=== PATIENT | female | born 1965 | race Caucasian/White ===

== ENCOUNTER 2022-06-18 13:34 | Emergency (ER) | payer SELFPAY ==
[2022-06-18] MEDS ORDERED: KETOROLAC 30 MG/ML INJ ONE (14:50)
--- NOTE | 2022-06-18 15:09 | EDPHYS ---
Physician Documentation [facility] Name: Saba Villasenor Age: 57 yrs Sex: Female : 1965 Arrival Date: 06/18/2022 Time: 13:37 Bed 9 Private MD: ED Physician Van Khoury HPI: 06/18 14:55 This 57 yrs old Female presents to ER via Ambulatory with complaints of Toothache, Jaw cp Pain, throat,cheek pain. 14:55 The patient presents with pain. The problem is located in the right lower jaw. Onset: cp The symptoms/episode began/occurred 2 month(s) ago. Duration: The symptoms are continuous, and are markedly worse than the original presentation. Associated signs and symptoms: Pertinent positives: right ear pain, right jaw pain, right facial pain, Pertinent negatives: anorexia, chills, dysphagia, fever, inability to eat. Severity of symptoms: in the emergency department the symptoms are unchanged, despite home interventions. Patient reports she is currently taking prescribed Amoxicillin for dental pain. Historical: - Allergies: 14:28 Codeine; kc6 14:28 Hydrocodone-Acetaminophen; kc6 - Home Meds: 14:28 amoxicillin Oral [Active]; kc6 - PMHx: 14:28 None; kc6 - PSHx: 14:28 Cholecystectomy; kc6 - Immunization history:: Client reports receiving the 2nd dose of the Covid vaccine, Flu vaccine is not up to date. - Social history:: Smoking status: Patient denies any tobacco usage or history of. ROS: 15:00 ENT: Positive for dental pain, ear pain, sore throat, Negative for drainage from cp ear(s), sinus congestion, difficulty swallowing, difficulty handling secretions. 15:00 Eyes: Negative for injury, pain, redness, and discharge. cp 15:00 Constitutional: Negative for body aches, chills, fever. 15:00 Respiratory: Negative for cough, shortness of breath, wheezing. 15:00 Abdomen/GI: Positive for nausea, Negative for vomiting, diarrhea, constipation. 15:00 Neuro: Negative for altered mental status, headache, weakness. Exam: 15:05 Constitutional: The patient appears in no acute distress, alert, awake, non-toxic, well cp developed, well nourished. 15:05 Head/Face: Normocephalic, atraumatic. cp 15:05 Eyes: Periorbital structures: appear normal, Conjunctiva: normal, no exudate, no injection, Sclera: no appreciated abnormality, Lids and lashes: appear normal, bilaterally. 15:05 ENT: External ear(s): are unremarkable, Ear canal(s): are normal, clear, TM's: dullness, bilaterally, Nose: is normal, Mouth: Lips: moist, Oral mucosa: pink and intact, moist, Posterior pharynx: Airway: no evidence of obstruction, patent, Tonsils: are normal in appearance, swelling, is not appreciated, erythema, is not appreciated, exudate, is not appreciated, Dental exam: abscess, is not appreciated, fractured teeth are noted, specifically the lower right second molar (#31), pain, that is moderate, specifically in the lower right second molar (#31), Voice: is normal. 15:05 Neck: ROM/movement: is normal, is supple, without pain, no range of motions limitations, Lymph nodes: no appreciated lymphadenopathy. 15:05 Chest/axilla: Inspection: normal. 15:05 Cardiovascular: Rate: normal, Rhythm: regular. cp 15:05 Respiratory: the patient does not display signs of respiratory distress, Respirations: normal, no use of accessory muscles, no retractions, labored breathing, is not present. 15:05 Skin: cellulitis, is not appreciated, no rash present. 15:05 Neuro: Orientation: to person, place \T\ time. Mentation: is normal. Vital Signs: 14:26 BP 142 / 75; Pulse 63; Resp 20 S; Temp 97.8(O); Pulse Ox 98% on R/A; Weight 86.64 kg kc6 (R); Height 5 ft. 3 in. (160.02 cm) (R); Pain 4/10; 14:26 Body Mass Index 33.83 (86.64 kg, 160.02 cm) kc6 MDM: 14:19 Patient medically screened. cp 15:05 Differential diagnosis: dental caries, dental abscess. cp 15:08 Data reviewed: vital signs, nurses notes. cp 15:08 Consideration of Admission/Observation Escalation of care including cp admission/observation considered. I considered the following discharge prescriptions or medication management in the emergency department Medications were administered in the Emergency Department. See MAR. Test considered but Not performed: Other Details CT facial bones. Counseling: I had a detailed discussion with the patient and/or guardian regarding: the historical points, exam findings, and any diagnostic results supporting the discharge/admit diagnosis, the need for outpatient follow up, for definitive care, a dentist, to return to the emergency department if symptoms worsen or persist or if there are any questions or concerns that arise at home. Response to treatment: the patient's symptoms have mildly improved after treatment, and as a result, I will discharge patient. Administered Medications: 14:51 Drug: Clindamycin 300 mg Route: PO; kc6 15:22 Follow up: Response: No adverse reaction kc6 14:52 Drug: Ketorolac 30 mg Route: IM; Site: right deltoid; kc6 15:22 Follow up: Response: No adverse reaction; Pain is decreased kc6 Disposition: 16:51 Co-signature as Attending Physician, Van Khoury MD I reviewed the patient's care rn provided by the Advanced Practice Provider and agree with the diagnosis and treatment plan. Disposition Summary: 06/18/22 15:08 Discharge Ordered Location: Home cp Problem: an ongoing problem cp Symptoms: have improved cp Condition: Stable cp Diagnosis - Disorder of teeth and supporting structures, unspecified cp Followup: cp - With: Poncho Cervantes DDS - When: 2 - 3 days - Reason: Recheck today's complaints Discharge Instructions: - Discharge Summary Sheet cp - Dental Pain cp Forms: - Medication Reconciliation Form cp - Thank You Letter cp - Antibiotic Education cp - Prescription Opioid Use cp Prescriptions: - Clindamycin HCl 300 mg Oral Capsule - take 1 capsule by ORAL route every 6 hours for 10 days; 40 capsule; Refills: 0, cp Product Selection Permitted - Zofran 4 mg Oral Tablet - take 1 tablet by ORAL route every 12 hours As needed; 20 tablet; Refills: 0, cp Product Selection Permitted - Diclofenac Sodium 75 mg Oral Tablet Sustained Release - take 1 tablet by ORAL route 2 times per day; 30 tablet; Refills: 0, Product cp Selection Permitted Signatures: Van Khoury MD MD rn Page, Corey, PA PA cp Campbell, Kaitlyn, RN RN kc6
--- NOTE | 2022-06-18 15:09 | ER ---
Nurse's Notes [facility] Name: Saba Villasenor Age: 57 yrs Sex: Female : 1965 Arrival Date: 06/18/2022 Time: 13:37 Bed 9 Private MD: Diagnosis: Disorder of teeth and supporting structures, unspecified Presentation: 06/18 14:26 Chief complaint: Patient states: right lower tooth/jaw pain that started about two kc6 months ago has progressively gotten worse. Coronavirus screen: Vaccine status: Patient reports receiving the 2nd dose of the covid vaccine. At this time, the client does not indicate any symptoms associated with coronavirus-19. Ebola Screen: No symptoms or risks identified at this time. Initial Sepsis Screen: Does the patient meet any 2 criteria? No. Patient's initial sepsis screen is negative. Does the patient have a suspected source of infection? No. Patient's initial sepsis screen is negative. Risk Assessment: Do you want to hurt yourself or someone else? Patient reports no desire to harm self or others. Onset of symptoms was March 2022. 14:26 Method Of Arrival: Ambulatory kc6 14:26 Acuity: PAULA 4 kc6 Triage Assessment: 14:28 General: Appears in no apparent distress. comfortable, Behavior is calm, cooperative, kc6 appropriate for age. Pain: Complains of pain in right lower jaw Pain currently is 4 out of 10 on a pain scale. Quality of pain is described as sharp, Pain began two months ago Is continuous, Alleviated by nothing. Aggravated by eating, drinking, Also complains of no other associated symptoms. EENT: Reports pain in right lower jaw. Neuro: Vivas Agitation-Sedation Scale (RASS): 0 - Alert and Calm Level of Consciousness is awake, alert, obeys commands, Oriented to person, place, time, situation, Appropriate for age. Cardiovascular: Capillary refill < 3 seconds. Respiratory: Airway is patent Trachea midline Respiratory effort is even, unlabored, Respiratory pattern is regular, symmetrical. GI: No signs and/or symptoms were reported involving the gastrointestinal system. : No signs and/or symptoms were reported regarding the genitourinary system. Derm: No signs and/or symptoms reported regarding the dermatologic system. Skin is intact, Skin is pink, warm \T\ dry. Musculoskeletal: No signs and/or symptoms reported regarding the musculoskeletal system. Circulation, motion, and sensation intact. Capillary refill < 3 seconds, Range of motion:. Historical: - Allergies: 14:28 Codeine; kc6 14:28 Hydrocodone-Acetaminophen; kc6 - Home Meds: 14:28 amoxicillin Oral [Active]; kc6 - PMHx: 14:28 None; kc6 - PSHx: 14:28 Cholecystectomy; kc6 - Immunization history:: Client reports receiving the 2nd dose of the Covid vaccine, Flu vaccine is not up to date. - Social history:: Smoking status: Patient denies any tobacco usage or history of. Screenin:21 [facility] ED Fall Risk Assessment (Adult) History of falling in the last 3 months, kc6 including since admission No falls in past 3 months (0 pts) Confusion or Disorientation No (0 pts) Intoxicated or Sedated No (0 pts) Impaired Gait No (0 pts) Mobility Assist Device Used No (0 pt) Altered Elimination No (0 pt) Score/Fall Risk Level 0 - 2 = Low Risk Oriented to surroundings, Maintained a safe environment, Educated pt \T\ family on fall prevention, incl call for assistance when getting out of bed, Assessed \T\ reinforced patient's understanding of fall precautions, Hourly rounding (assess needs \T\ fall precautionary measures) done. Abuse screen: Denies threats or abuse. Denies injuries from another. Nutritional screening: No deficits noted. Tuberculosis screening: No symptoms or risk factors identified. Assessment: 15:15 Reassessment: Patient appears in no apparent distress at this time. No changes from [facility] previously documented assessment. Patient and/or family updated on plan of care and expected duration. Pain level reassessed. Patient is alert, oriented x 3, equal unlabored respirations, skin warm/dry/pink. Vital Signs: 14:26 BP 142 / 75; Pulse 63; Resp 20 S; Temp 97.8(O); Pulse Ox 98% on R/A; Weight 86.64 kg kc6 (R); Height 5 ft. 3 in. (160.02 cm) (R); Pain 4/10; 14:26 Body Mass Index 33.83 (86.64 kg, 160.02 cm) [facility] ED Course: 13:37 Patient arrived in ED. am2 13:38 Ta Alvarez PA is PHCP. cp 13:39 Van Khoury MD is Attending Physician. cp 14:26 Noy Vásquez, RN is Primary Nurse. kc6 14:28 Triage completed. kc6 14:31 Arm band placed on. kc6 14:31 Patient has correct armband on for positive identification. Bed in low position. Call kc6 light in reach. Side rails up X 1. 15:07 Poncho Cervantes DDS is Referral Physician. cp 15:21 No provider procedures requiring assistance completed. Patient did not have IV access kc6 during this emergency room visit. Administered Medications: 14:51 Drug: Clindamycin 300 mg Route: PO; kc6 15:22 Follow up: Response: No adverse reaction kc6 14:52 Drug: Ketorolac 30 mg Route: IM; Site: right deltoid; kc6 15:22 Follow up: Response: No adverse reaction; Pain is decreased kc6 Medication: 15:21 VIS not applicable for this client. kc6 Outcome: 15:08 Discharge ordered by MD. cp 15:21 Discharged to home ambulatory. kc6 15:21 Condition: stable 15:21 Discharge instructions given to patient, Instructed on discharge instructions, follow up and referral plans. medication usage, Demonstrated understanding of instructions, follow-up care, medications, Prescriptions given X 3. 15:22 Patient left the ED. kc6 Signatures: Ta Alvarez PA PA cp Moreno, Amanda am2 Noy Vásquez, RN RN kc6
[2022-06-18 16:28] VITALS: BP 142/75; TEMP 97.8; O2SAT 98
== END 2022-06-18 15:22 | disposition home or self-care (01) ==
LOC: ER 13:34
DX: K08.9 Disorder of teeth and supporting structures, unspecified (principal); Z88.5 Allergy status to narcotic agent
CPT/HCPCS: 96372; 99283